=== PATIENT | male | born 1985 | race Caucasian/White ===

== ENCOUNTER 2017-02-14 14:49 | Inpatient (IN) | payer MEDICAID ==
[~2017-02-14] VITALS: Ht 180.3 cm; Wt 91.0 kg
[~2017-02-14 14:49] MED LIST: ALBU8.5H3 INH; AZIT500T2 PO; BUDE10.2 INH; CIPR500T87 PO; DIAZ5TAB PO; IBUP200C8; LORA-446 PO; MONT10TA6 PO; OMEP40CA3 PO; PRED20TA PO; THEO400T2 PO
[2017-02-14] MEDS ORDERED: FLUT12HF2 INH (15:10)
[2017-02-14] MEDS ORDERED: methylPREDNISolone SOD SUCC 125 MG/2 ML ONE (15:11)
[2017-02-14] MEDS ORDERED: DUO NEB INH (15:12)
[2017-02-14] MEDS ORDERED: SODIUM CHLORIDE FLUSH 10ML SYR IVF ONE ×2 (15:30→18:00)
[2017-02-14 16:09] LABS: BLOOD UREA NITROGEN 9 mg/dL (7-18)
[2017-02-14] MEDS ORDERED: MORPHINE SULFATE 4 MG/ML, 1ML ONE (17:40)
[2017-02-14] MEDS ORDERED: ONDANSETRON 2MG/ML, 2ML ONE (17:40)
[2017-02-14] MEDS ORDERED: ONDANSETRON 2MG/ML, 2ML IVPush ONE (18:00)
[2017-02-14] MEDS ORDERED: MORPHINE SULFATE 4 MG/ML, 1ML IVPush PRN (18:00)
[2017-02-14 19:31] VITALS: BP 130/78
[2017-02-14] MEDS: ALBUTEROL SULFATE 2.5 MG/3 ML NPPB SCH (20:00)
[2017-02-14] MEDS ORDERED: DIAZEPAM 10 MG TABLET PO ONE (20:00)
[2017-02-14] MEDS ORDERED: DIAZEPAM 5 MG TABLET ONE (21:06)
[2017-02-14] MEDS: ENOXAPARIN 40 MG/0.4 ML SQ SCH (21:10)
[2017-02-14] MEDS ORDERED: ACETAMINOPHEN 325 MG TABLET PO PRN (21:30)
[2017-02-14] MEDS ORDERED: DIAZEPAM 5 MG TABLET PO ONE (21:30)
[2017-02-14] MEDS: OMEPRAZOLE 20 MG CAPSULE.DR PO SCH (22:20)
[2017-02-14] MEDS: methylPREDNISolone SOD SUCC 125 MG/2 ML IVPush SCH (23:37)
[2017-02-15 00:45] VITALS: BP 114/75
[2017-02-15] MEDS ORDERED: IBUPROFEN 600 MG TABLET PO PRN (01:00)
[2017-02-15] MEDS ORDERED: MORPHINE SULFATE 4 MG/ML, 1ML IVPush ONE (01:00)
[2017-02-15] MEDS: ALBUTEROL SULFATE 2.5 MG/3 ML NPPB SCH ×4 (04:00→13:00)
[2017-02-15 05:33] LABS: BLOOD UREA NITROGEN 14 mg/dL (7-18)
[2017-02-15 07:27] VITALS: BP 112/65
[2017-02-15] MEDS: DIAZEPAM 5 MG TABLET PO SCH (09:15)
[2017-02-15] MEDS: MONTELUKAST 10 MG TABLET PO SCH (09:15)
[2017-02-15] MEDS: OMEPRAZOLE 20 MG CAPSULE.DR PO SCH (09:15)
[2017-02-15] MEDS: methylPREDNISolone SOD SUCC 125 MG/2 ML IVPush SCH ×2 (09:15→16:48)
[2017-02-15] MEDS ORDERED: METOCLOPRAMIDE 5 MG/ML, 2ML IVPush PRN (09:30)
[2017-02-15] MEDS ORDERED: DIPHENHYDRAMINE 50 MG/ML, 1ML IVPush PRN (09:30)
[2017-02-15] MEDS ORDERED: MORPHINE SULFATE 4 MG/ML, 1ML IVPush PRN (09:30)
[2017-02-15] MEDS: OXYcodone/APAP 5/325MG TABLET PO PRN ×3 (12:35→20:55)
[2017-02-15 12:58] VITALS: BP 125/73
[2017-02-15] MEDS: FLUTICASONE/VILANTEROL 200-25MCG/INH INH SCH (13:00)
[2017-02-15] MEDS: ALBUTEROL/IPRATROPIUM 2.5MG/0.5MG, 3 ML NPPB SCH ×3 (16:00→22:00)
[2017-02-15] MEDS ORDERED: DIAZEPAM 5 MG TABLET ONE (20:52)
[2017-02-15 20:53] VITALS: BP 125/78
[2017-02-15] MEDS: ENOXAPARIN 40 MG/0.4 ML SQ SCH (20:55)
[2017-02-15] MEDS ORDERED: DIAZEPAM 10 MG TABLET PO SCH (21:00)
[2017-02-16 00:23] VITALS: BP 117/69
[2017-02-16] MEDS: methylPREDNISolone SOD SUCC 125 MG/2 ML IVPush SCH ×2 (01:30→09:51)
[2017-02-16] MEDS: OXYcodone/APAP 5/325MG TABLET PO PRN ×4 (01:30→16:35)
[2017-02-16] MEDS: ALBUTEROL/IPRATROPIUM 2.5MG/0.5MG, 3 ML NPPB SCH ×4 (02:00→15:55)
[2017-02-16 05:11] LABS: BLOOD UREA NITROGEN 20 mg/dL (7-18)
[2017-02-16 05:13] LABS: ASPARTATE AMINO TRANSFERASE 13 U/L (15-37)
[2017-02-16 07:00] VITALS: BP 114/67
[2017-02-16] MEDS: DIAZEPAM 5 MG TABLET PO SCH (07:35)
[2017-02-16] MEDS: OMEPRAZOLE 20 MG CAPSULE.DR PO SCH (07:35)
[2017-02-16] MEDS: MONTELUKAST 10 MG TABLET PO SCH (07:35)
[2017-02-16] MEDS: FLUTICASONE/VILANTEROL 200-25MCG/INH INH SCH (07:36)
[2017-02-16 13:00] VITALS: BP 114/67
[2017-02-16 13:40] LABS: HIV 1&2 ANTIBODY SCREEN Nonreactive (Nonreactive); HIV-1 p24 ANTIGEN Nonreactive (Nonreactive)
[2017-02-16] MEDS ORDERED: GADOBUTROL 10 MMOL/10 ML PFS ONE (14:29)
[2017-02-16] MEDS ORDERED: OXYC1TAB7 PO (17:01)
== END 2017-02-16 17:25 | disposition home or self-care (01) | DRG 189 ==
LOC: ED 17:38 → EDIP 17:39 → ED 18:02 → 3NE 18:21
PROVIDERS: ADMIT Internal Medicine; ATTEND Internal Medicine
DX: J96.01 Acute respiratory failure with hypoxia (principal); J44.1 Chronic obstructive pulmonary disease with (acute) exacerbation; J45.901 Unspecified asthma with (acute) exacerbation; R51 Headache; T38.0X5A Adverse effect of glucocorticoids and synthetic analogues, initial encounter; J38.3 Other diseases of vocal cords; D72.829 Elevated white blood cell count, unspecified; K21.9 Gastro-esophageal reflux disease without esophagitis; Z88.8 Allergy status to other drugs, medicaments and biological substances; Z90.49 Acquired absence of other specified parts of digestive tract; Z87.11 Personal history of peptic ulcer disease; Z91.81 History of falling
CPT/HCPCS: 36415; 70450; 70553; 71010; 80048; 80053; 82040; 83605; 85025; 86703; 87899; 94640; 96374; 96375; A9585; J1650; J2405; J2930; J7613; J7620; G0435; J1200; J2765